=== PATIENT | male | born 1975 | race Caucasian/White ===

== ENCOUNTER 2016-04-12 08:14 | Emergency (ER) | payer OTHER ==
--- NOTE | ~2016-04-12 | ER ---
PATIENT'S NAME: [facility] AGE: 40 Y [address] ROOM: [place] [address] LOCATION: [facility] ADMIT DATE: 04/12/2016 ER/Outpatient Report DISCHARGE DATE: 04/12/2016 FAMILY PHYSICIAN: PHYSICIAN, NO ATTENDING PHYSICIAN: Juan F Fletcher Time of Arrival: 0820 hours. Time of Evaluation: 0820 hours. CHIEF COMPLAINT: Right ankle and foot injury. HISTORY OF PRESENT ILLNESS: The patient is a 40-year-old male who presents to the emergency department today with a chief complaint of right ankle and foot injury. He reports this occurred 2 days prior to arrival. He reports he slipped on some stairs and fell down a few stairs. Denies any head injury. No loss of consciousness. He can bear weight, but it is painful. It is primarily painful on the outside that it is currently 9/10 in severity. It is sharp. It is worse with movement. He has had swelling and bruising noted. PAST MEDICAL HISTORY: 1. Hypertension. 2. Anxiety. 3. Depression. 4. Bipolar. 5. Borderline personality disorder. PAST SURGICAL HISTORY: Appendectomy. SOCIAL HISTORY: The patient denies any tobacco use. Reports alcohol use three times a week. Denies any illicit drug use. ALLERGIES: NO KNOWN DRUG ALLERGIES. MEDICATIONS: Please see list. PRIMARY CARE DOCTOR: [facility] in [place]. REVIEW OF SYSTEMS: PATIENT'S NAME: [facility] AGE: 40 Y [address] ROOM: [place] [address] LOCATION: [facility] ADMIT DATE: 04/12/2016 ER/Outpatient Report DISCHARGE DATE: 04/12/2016 FAMILY PHYSICIAN: PHYSICIAN, NO ATTENDING PHYSICIAN: Juan F Fletcher All systems are reviewed by myself and are negative with the exception of those discussed in the HPI and past medical history. PHYSICAL EXAMINATION: VITAL SIGNS: Weight 118.7 kg, blood pressure 145/90, pulse 105, respiratory rate 20, temperature 97.9, and oxygen saturation 95% on room air. GENERAL: The patient is a 40-year-old male, who appears of stated age. Well developed, well nourished, in no acute distress. HEENT: Head; normocephalic and atraumatic. Pupils are equal, round, and reactive to light and accommodation. Extraocular motions are intact. Nares are patent bilaterally. TMs are clear. Oropharynx is clear. NECK: Supple. There is no nuchal rigidity. CARDIOVASCULAR: Tachycardic. No murmurs, rubs, or gallops. LUNGS: Clear to auscultation bilaterally. No wheezes, rales, or rhonchi. ABDOMEN: Soft, nontender, and nondistended. No rebound, rigidity, or guarding. MUSCULOSKELETAL: The patient has tenderness to palpation in the lateral malleolus and the right ankle. 2/4 DP and PT pulses equal bilaterally. SKIN: The patient does have swelling noted to the ankle and foot. There is ecchymosis noted. LABORATORY DATA AND IMAGING STUDIES: Labs and X-rays: A three-view x-ray of the right ankle was obtained. It does show a Stearns A fracture. The foot is unremarkable. IMPRESSION: 1. Acute right ankle fracture, closed, Stearns A. 2. Initial visit. EMERGENCY DEPARTMENT COURSE: The patient was brought back to the examination room. Seen and evaluated by myself. X-rays were obtained as described above. The patient does not request any pain medicine at this time. I have discussed a close followup with orthopedic surgeon in 7 to 10 days and with physician on-call for trauma call. I have discussed return to care instructions including worsening symptoms or any other concerns to return to the emergency department as soon as possible. The patient is placed in a CAM walking boot and crutches. He is written a prescription for [place] for home with sedation warning. DISPOSITION: The patient was discharged to home in good condition. PATIENT'S NAME: VIJAY CARVER [facility] AGE: 40 Y [address] ROOM: [place], [place] [address] LOCATION: [facility] ADMIT DATE: 04/12/2016 ER/Outpatient Report DISCHARGE DATE: 04/12/2016 FAMILY PHYSICIAN: PHYSICIAN, NO ATTENDING PHYSICIAN: Juan F Fletcher DO KJR/ayana /[id number] d: 04/12/16 1807 t: 04/19/16 0551, OUTPATIENT REPORT
== END 2016-04-12 09:14 | disposition disaster alternative care site (69) ==
LOC: GACC 08:14
DX: S82.61XA Displaced fracture of lateral malleolus of right fibula, initial encounter for closed fracture (principal); I10 Essential (primary) hypertension; F41.9 Anxiety disorder, unspecified; F31.9 Bipolar disorder, unspecified; F60.3 Borderline personality disorder; Z90.49 Acquired absence of other specified parts of digestive tract; Z79.899 Other long term (current) drug therapy; W10.9XXA Fall (on) (from) unspecified stairs and steps, initial encounter

== ENCOUNTER 2016-04-15 11:24 | Emergency (ER) | payer OTHER ==
--- NOTE | ~2016-04-15 | ER ---
PATIENT'S NAME: VIJAY CARVER [facility] AGE: 40 Y [address] ROOM: [place], [place] [address] LOCATION: [facility] ADMIT DATE: 04/15/2016 ER/Outpatient Report DISCHARGE DATE: 04/15/2016 FAMILY PHYSICIAN: PHYSICIAN, NO ATTENDING PHYSICIAN: Landry Ugalde Time of Arrival: 1145 hours. Time of Evaluation: 1200 hours. CHIEF COMPLAINT: Foot pain. HISTORY OF PRESENT ILLNESS: The patient states he fell down some stairs at home on 04/10/2016. He was seen here on 04/12/2016, diagnosed with a right fibula fracture. He was placed in a boot and given crutches. He states that he now has a sore on his right inner leg from the boot. He states it hurts to wear the boot because of the blister, and he says he weighs too much to be able to use the crutches. He has not followed up with any primary provider's. States he just moved here to [place] not that long ago, and he is trying to arrange transfer [facility] [place] [facility] be in [place] or [place]. States he has not taken any of the [place] because he lost the prescription and never got it filled. Denies running a fever. He has not had any numbness or tingling of his toes. ALLERGIES: NO KNOWN ALLERGIES. CURRENT MEDICATIONS: Xanax. PAST MEDICAL HISTORY: Hypertension. PAST SURGICAL HISTORY: Appendectomy. 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 Denies use of tobacco or drugs. Does drink alcohol. REVIEW OF SYSTEMS: All negative other than those mentioned in the HPI. PHYSICAL EXAMINATION: PATIENT'S NAME: VIJAY CARVER [facility] AGE: 40 Y [address] ROOM: [place], [place] [address] LOCATION: [facility] ADMIT DATE: 04/15/2016 ER/Outpatient Report DISCHARGE DATE: 04/15/2016 FAMILY PHYSICIAN: PHYSICIAN, NO ATTENDING PHYSICIAN: Landry Ugalde VITAL SIGNS: He weighs 118.7 kg, blood pressure is 161/109, pulse of 111, respirations 19, temp of 98.5, O2 saturation is 95% on room air. GENERAL: He is awake, alert, and oriented x4. SKIN: [place], warm, and dry. RESPIRATIONS: Even and nonlabored. Lung sounds are clear throughout. HEART: Regular rate and rhythm. The patient has strong right pedal pulses. Good sensation to the tip of his toes. He does have an open blistered area and a closed blister of the right lower leg medial aspect. It is reddened around that area. No drainage of the area is noted. IMPRESSION: Infected right lower leg. PLAN: Silvadene cream was applied to the area with a dressing. He is to wash that area twice a day and then apply a thin layer of the Silvadene and rewrap it with a dressing. I discussed with him in detail the importance of either using the crutches or wearing the boot, and he wears the boot, he is to wear knee-high stock to prevent further breakdown, but it was important for the healing of his leg to not bear weight on it. Prescription was given for cephalexin antibiotic and [place] #10 tablets. He verbalized understanding. KRUNAL POLLARD APRN FOR [facility] RAGSDALE/ayana /[id number] d: 04/15/167 t: 04/18/161809, OUTPATIENT REPORT
== END 2016-04-15 13:00 | disposition disaster alternative care site (69) ==
LOC: GMED 11:24
DX: L08.9 Local infection of the skin and subcutaneous tissue, unspecified (principal)